=== PATIENT | female | born 1990 | race Two or more races ===

== ENCOUNTER → 2016-06-09 | Outpatient (CLI) | payer OTHER ==
--- NOTE | 2016-06-09 17:05 | REP ---
First trimester OB sonography: History: Cramping, unable to find heart rate. Question missed AB. At 10.5 weeks by LMP, LISSET December 31, 2016. Findings: Transabdominal scanning confirms an intrauterine gestational sac located in the lower uterine segment. Uterine dimensions are 11.0 x 7.2 x 9.1 cm. There is an embryonic pole in the gestational sac. This is immobile and no cardiac motion is observed. Embryonic pole measures 14.5 mm in crown-rump length. This would correspond with a 7-prez-8-day gestational age estimate. Findings are compatible with intrauterine demise and with the low position of the gestational sac in the uterus, spontaneous AB in progress. Right ovary measures 3.9 x 2.5 x 2.5 cm.. its Doppler flow is normal. There is a 1.8 x 2.4 x 1.6 cm cystic area in the right ovary. The left ovary was not visualized on transabdominal scanning. No free fluid is seen. Impression: Findings consistent with intrauterine demise at 7 weeks 5 days by crown-rump length. No motion or cardiac motion is observed. The irregularly shaped gestational sac is in the lower uterine segment consistent with spontaneous AB in progress. Signed by Evan Hernandez MD 06/09/2016 06:54 P
== END ==
LOC: M RAD 15:54
PROVIDERS: ATTEND Advanced Practice Midwife
DX: Z36 Encounter for antenatal screening of mother (principal); Z3A.10 10 weeks gestation of pregnancy

== ENCOUNTER → 2016-11-07 | Outpatient (REF) | payer OTHER | LOC: M LAB REF 10:39 | PROVIDERS: ATTEND Physician Assistant | DX: R30.0 Dysuria (principal) ==

== ENCOUNTER → 2017-08-13 | Outpatient (CLI) | payer OTHER | LOC: M WUC 12:18 | DX: M25.562 Pain in left knee (principal) | CPT/HCPCS: 73564 ==